=== PATIENT | male | born 1950 | race Caucasian/White ===

== ENCOUNTER 2016-07-06 16:45 | Emergency (ER) | payer OTHER ==
[~2016-07-06] VITALS: Ht 167.6 cm; Wt 85.0 kg
[2016-07-06 16:47] VITALS: BP 144/77; PULSE 74; RESP 24; O2SAT 89
--- NOTE | 2016-07-06 17:56 | PD ---
HPI Chief Complaint: Respiratory Symptoms Time Seen by Provider: 17:51 Travel History International Travel<30 days: No Contact w/Intl Traveler<30days: No Traveled to known affect area: No History of Present Illness HPI 65-year-old male presents to the emergency department for evaluation of coughing , shortness breath, wheezing. He states that he has been having coughing, especially in the morning, for approximately one week. He states that today, he woke up and was coughing so hard that it made him short of breath. Patient reports one episode of chest pain earlier that resolved with drinking water. He denies any chest pain at this time. He states it was midsternal and he thinks it was due to not eating. He states that as soon as he drank water, the pain went away. The patient has been a 1 pack per day smoker for approximately 20 years. He denies any history of asthma, COPD, pneumonia. He states he believes his coughing is from "the pollen". The patient denies any edema. He has no chronic medical problems and takes no prescribed medications. The patient denies any recent surgery or travel. He states that EMS had given him a nebulizer treatment earlier today which did help his symptoms. Patient denies any abdominal pain. No nausea, vomiting, diarrhea. He denies any fevers. [facility] Social History Alcohol Use: No Tobacco Use: Yes Substance Use: Yes (marijuana) Allergies-Medications (Allergen,Severity, Reaction): Coded Allergies: No Known Allergies (Unverified , 07/06/16) Review of Systems Except as stated in HPI: all other systems reviewed are Neg Physical Exam Narrative GENERAL: Well-nourished, well-developed male patient, ambulatory. Afebrile. Oxygen saturation is 95% on room air upon my exam. SKIN: Focused skin assessment warm/dry. HEAD: Normocephalic. Atraumatic. EYES: No scleral icterus. No injection or drainage. NECK: Supple, trachea midline. No JVD or lymphadenopathy. CARDIOVASCULAR: Regular rate and rhythm without murmurs, gallops, or rubs. RESPIRATORY: Breath sounds equal bilaterally. No accessory muscle use. Lungs sounds with expiratory wheezes noted throughout. Patient is talking in full sentences. No respiratory distress. GASTROINTESTINAL: Abdomen soft, non-tender, nondistended. MUSCULOSKELETAL: No cyanosis, or edema. BACK: Nontender without obvious deformity. No CVA tenderness. Data Data Last Documented VS Vital Signs Date Time Temp Pulse Resp B/P Pulse Ox O2 Delivery O2 Flow Rate FiO2 07/06/16 18:47 97.8 07/06/16 18:30 96 Nasal Cannula 2 07/06/16 18:30 79 20 07/06/16 18:30 143/76 Orders Complete Blood Count With Diff (07/06/16 17:49) Basic Metabolic Panel (Bmp) (07/06/16 17:49) B-Type Natriuretic Peptide (07/06/16 17:49) Magnesium (Mg) (07/06/16 17:49) Ckmb (Isoenzyme) Profile (07/06/16 17:49) Troponin I (07/06/16 17:49) Iv Access Insert/Monitor (07/06/16 17:49) Electrocardiogram (07/06/16 17:49) Ecg Monitoring (07/06/16 17:49) Oximetry (07/06/16 17:49) Oxygen Administration (07/06/16 17:49) Chest, Single Ap (07/06/16 17:49) Sodium Chloride 0.9% Flush (Ns Flush) (07/06/16 18:00) Methylprednisolone So Succ Inj (Solumedr (07/06/16 18:00) Albuterol-Ipratropium Neb (Duoneb Neb) (07/06/16 18:00) CKMB (07/06/16 18:46) CKMB% (07/06/16 18:46) Labs Laboratory Tests Test 07/06/16 18:46 White Blood Count 9.6 TH/MM3 Red Blood Count 5.13 MIL/MM3 Hemoglobin 16.0 GM/DL Hematocrit 48.1 % Mean Corpuscular Volume 93.8 FL Mean Corpuscular Hemoglobin 31.3 PG Mean Corpuscular Hemoglobin 33.4 % Concent Red Cell Distribution Width 13.7 % Platelet Count 219 TH/MM3 Mean Platelet Volume 8.2 FL Neutrophils (%) (Auto) 48.3 % Lymphocytes (%) (Auto) 37.9 % Monocytes (%) (Auto) 8.3 % Eosinophils (%) (Auto) 4.8 % Basophils (%) (Auto) 0.7 % Neutrophils # (Auto) 4.6 TH/MM3 Lymphocytes # (Auto) 3.7 TH/MM3 Monocytes # (Auto) 0.8 TH/MM3 Eosinophils # (Auto) 0.5 TH/MM3 Basophils # (Auto) 0.1 TH/MM3 CBC Comment DIFF FINAL Differential Comment Sodium Level 137 MEQ/L Potassium Level 3.5 MEQ/L Chloride Level 103 MEQ/L Carbon Dioxide Level 25.5 MEQ/L Anion Gap 9 MEQ/L Blood Urea Nitrogen 12 MG/DL Creatinine 1.24 MG/DL Estimat Glomerular Filtration 59 ML/MIN Rate Random Glucose 107 MG/DL Calcium Level 8.8 MG/DL Magnesium Level 2.2 MG/DL Total Creatine Kinase 141 U/L Creatine Kinase MB 1.4 NG/ML Troponin I LESS THAN 0.02 NG/ML B-Type Natriuretic Peptide 2 PG/ML MDM Medical Decision Making Medical Screen Exam Complete: Yes Emergency Medical Condition: Yes Medical Record Reviewed: Yes Interpretation(s) Last Impressions Chest X-Ray 07/06/16 1749 Signed Impressions: Service Date/Time: Wednesday, July 06, 2016 18:11 - CONCLUSION: No acute disease. Pepito Landis MD Differential Diagnosis viral URI versus pneumonia versus COPD versus unlikely ACS Narrative Course 65-year-old male presents to the emergency department for evaluation of cold symptoms for one week with intermittent shortness of breath, wheezing, coughing. No fevers. No other symptoms. Physical exam reveals wheezing noted throughout. Patient is a 1 pack smoker for 20 years, although he does deny being diagnosed with COPD. EKG, CBC, BMP, magnesium, CK, troponin, BNP are ordered and pending. Patient is given DuoNeb 3 and Solu-Medrol 125 mg IV. Chest x-ray is ordered and pending. EKG shows SR, HR 64, no acute ST changes. CBC shows normal WBC of 9.6, monocytes 8.3. BMP shows no acute abnormality. BNP is 2. Magnesium is 2.2. CK is 141. Troponin is less than 0.02. Chest x-ray shows no acute disease. Patient verbalizes that he would like to be discharged home. Upon reexamination , lungs sounds are not clear to auscultation. The patient states he feels better. I discussed the case and findings with my attending physician, Dr. Burris, who agrees with plan and and disposition. The patient will be discharged with a prescription for albuterol inhaler, prednisone, azithromycin. He is encouraged to follow-up with his primary care physician on Saturday. He is instructed to return immediately for any acute worsening of symptoms. Patient verbalizes agreement and understanding. The patient was discharged in stable condition with instructions, including return instructions and follow up instructions. Diagnosis Primary Impression: Upper respiratory infection Qualified Code: J06.9 - Upper respiratory tract infection, unspecified type Referrals: Primary Care Physician 3 days Patient Instructions: General Instructions, Upper Respiratory Infection (ED) Additional Instructions: Use albuterol inhaler as directed as needed for shortness of breath/wheezing. Take azithromycin as directed until gone. Take prednisone as directed. Start this tomorrow. Follow-up with your primary care physician. Return to the emergency department for any acute worsening of symptoms. Med/Other Pt SpecificInfo: Prescription(s) given Scripts Azithromycin (Zithromax Z-Leo)250 Mg [id number] Mg PO DIRECTED #1 DSPK Ref 0 500 MG (2 tabs) day 1, then 1 tab days 2-5. Prov:Jenny Brandt 07/06/16 Prednisone 20 Mg Tab40 Mg PO DAILY 4 Days Ref 0 Prov:Jenny Brandt 07/06/16 Albuterol 18 GM Inh (Ventolin Hfa 18 GM Inh)90 Mcg/Act Aer1 Puff INH Q4H PRN ( SHORTNESS OF BREATH) #1 INHALER Ref 0 Prov:Jenny Brandt 07/06/16 Disposition: 01 DISCHARGE HOME Condition: Stable Jenny Brandt Jul 06, 2016 17:56
[2016-07-06] MEDS ORDERED: methylPREDNISolone SOD SUCC 125 MG/2 ML VIAL IVP ONE (18:00)
[2016-07-06] MEDS ORDERED: SODIUM CHLORIDE 0.9% FLUSH 10 ML FLUSH IVF PRN (18:00)
[2016-07-06] MEDS: RESP: ALBUTEROL 2.5 MG/IPRATROPIUM 0.5 MG NEB (SCH) INH (18:04)
[2016-07-06 18:30] VITALS: BP 143/76; PULSE 67; RESP 18; O2SAT 96
--- NOTE | 2016-07-06 18:41 | RADRPT ---
EXAM DATE/TIME: 07/06/2016 18:11 [facility] COMPARISON: No previous studies available for comparison. INDICATIONS : Shortness of breath starting today MEDICAL HISTORY : None. SURGICAL HISTORY : None. ENCOUNTER: Initial ACUITY: 1 day PAIN SCORE: 0/10 LOCATION: Bilateral chest FINDINGS: A single view of the chest demonstrates the lungs to be symmetrically aerated without evidence of mas s, infiltrate or effusion. The cardiomediastinal contours are unremarkable. Osseous structures are intact. CONCLUSION: No acute disease. Pepito Landis MD on July 06, 2016 at 18:40 Board Certified Radiologist. This report was verified electronically.
[2016-07-06 18:47] VITALS: TEMP 97.8
[2016-07-06 19:06] LABS: AUTOMATED NEUTROPHIL # 4.6 TH/MM3 (1.8-7.7); BASOPHIL # 0.1 TH/MM3 (0-0.2); BASOPHIL % 0.7 % (0.0-2.0); EOSINOPHIL # 0.5 TH/MM3 (0-0.4); EOSINOPHIL % 4.8 % (0.0-4.0); HEMATOCRIT 48.1 % (39.0-51.0); HEMO FLAGS DIFF FINAL; LYMPH % 37.9 % (9.0-44.0); LYMPHOCYTE # 3.7 TH/MM3 (1.0-4.8); MEAN CELL VOLUME 93.8 FL (80.0-100.0); MEAN CORPUSCULAR HEMOGLOBIN 31.3 PG (27.0-34.0); MEAN CORPUSCULAR HGB CONC 33.4 % (32.0-36.0); MONO % 8.3 % (0.0-8.0); NEUT % 48.3 % (16.0-70.0); PLATELET COUNT 219 TH/MM3 (150-450); RED BLOOD COUNT 5.13 MIL/MM3 (4.50-5.90); RED CELL DISTRIBUTION WIDTH 13.7 % (11.6-17.2); WHITE BLOOD COUNT 9.6 TH/MM3 (4.0-11.0)
[2016-07-06 19:38] LABS: ANION GAP 9 MEQ/L (5-15); BICARBONATE 25.5 MEQ/L (21.0-32.0); BLOOD UREA NITROGEN 12 MG/DL (7-18); CHLORIDE 103 MEQ/L (98-107); CREATINE KINASE 141 U/L (39-308); GLOMERULAR FILTRATION RATE 59 ML/MIN (>89); MAGNESIUM 2.2 MG/DL (1.5-2.5); POTASSIUM 3.5 MEQ/L (3.5-5.1); SODIUM (NA) 137 MEQ/L (136-145)
[2016-07-06 19:51] LABS: CKMB 1.4 NG/ML (0.5-3.6)
[2016-07-06] MEDS ORDERED: PRED20 PO (20:19)
[2016-07-06] MEDS ORDERED: VENTAER INH (20:19)
[2016-07-06] MEDS ORDERED: ZITHTAB PO (20:19)
--- NOTE | 2016-07-08 21:27 | EKG ---
Date Performed: 07/06/2016 Time Performed: 18:47:07 PTAGE: 65 years EKG: Sinus rhythm WITH SINUS ARRHYTHMIA INFERIOR MYOCARDIAL INFARCTION ABNORMAL ECG NO PREVIOUS TRACING DOCTOR: Anshu Kathleen Interpretating Date/Time 07/08/2016 21:23:10
== END 2016-07-06 20:37 | disposition home or self-care (01) ==
LOC: NEPC 16:45
DX: J06.9 Acute upper respiratory infection, unspecified (principal); F17.210 Nicotine dependence, cigarettes, uncomplicated; R94.31 Abnormal electrocardiogram [ECG] [EKG]
CPT/HCPCS: 71010; 80048; 82550; 82552; 83735; 83880; 84484; 85025; 93005; 94640; 94664; 96374; 99284; J2930

== ENCOUNTER 2016-09-03 20:35 | Emergency (ER) | payer OTHER ==
[~2016-09-03] VITALS: Ht 167.6 cm; Wt 85.0 kg
[~2016-09-03 20:35] MED LIST: PRED20 PO; VENTAER INH; ZITHTAB PO
[2016-09-03 20:36] VITALS: BP 126/90; PULSE 88; RESP 18; TEMP 97.7; O2SAT 91
--- NOTE | 2016-09-03 20:41 | PD ---
HPI Chief Complaint: Respiratory Symptoms Time Seen by Provider: 20:41 Travel History International Travel<30 days: No Contact w/Intl Traveler<30days: No Traveled to known affect area: No History of Present Illness HPI 66-year-old male presents the emergency department with acute respiratory distress and shortness of breath with hypoxemia triage. 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 Patient denies fever, chills, or chest pain. Patient states he's had increased productive cough with clear sputum over the past week. Patient was recently seen by primary care physician and started on A VENTOLIN INHALER 6 WEEKS AGO. He was also started on a once a day inhaler for COPD 6 days ago, which was a sample from his doctor. He states this morning he felt his normal self. Patient does still smoke a few cigarettes every day which is considerably better according to him than 2 months ago. He has no reviews cardiac history. He currently is feeling better on 2 L O2 via nasal cannula with O2 sat of 94% at rest currently. He has no known drug allergies. [facility] Social History Alcohol Use: No Tobacco Use: Yes Substance Use: Yes (marijuana) Allergies-Medications (Allergen,Severity, Reaction): Coded Allergies: No Known Allergies (Unverified , 09/03/16) Reported Meds & Prescriptions Reported Meds & Active Scripts Active Nebulizer 1 Mis Mis 1 Ea .ROUTE DIRECTED Prednisone 20 Mg Tab 20 Mg PO BID Albuterol Neb (Albuterol Sulfate) 2.5 Mg/3 Ml Neb 2.5 Mg NEB Q4HR NEB While awake Azithromycin 500 Mg Tab 500 Mg PO DAILY Ventolin Hfa 18 GM Inh (Albuterol Sulfate) 90 Mcg/Act Aer 1 Puff INH Q4H PRN Reported Anoro Ellipta Inh (Umeclidinium/Vilanterol) 62.5-25 Mcg/Act Aero 1 Puff INH DAILY Review of Systems Except as stated in HPI: all other systems reviewed are Neg General / Constitutional: No: Fever, Chills Eyes: No: Visual changes HENT: No: Headaches Cardiovascular: No: Chest Pain or Discomfort, Palpitations, Irregular Rhythm, Tachycardia, Diaphoresis Respiratory: Positive: Cough, Shortness of Breath, Wheezing, Orthopnea, No: Sneezing, Hemoptysis, Stridor, Night Sweats, Pleuritic Pain Gastrointestinal: No: Nausea, Vomiting, Diarrhea, Abdominal Pain Genitourinary: No: Dysuria Musculoskeletal: No: Pain Skin: No Rash Neurologic: No: Weakness Psychiatric: No: Anxiety, Depression, Suicidal Ideations, Homicidal Ideation Endocrine: No: Polydipsia Hematologic/Lymphatic: No: Easy Bruising Physical Exam Narrative GENERAL: Patient appears in mild distress, but able to speak in short sentences. SKIN: Warm and dry. Normal color. Normal turgor. No diaphoresis. HEAD: Atraumatic. Normocephalic. EYES: Pupils equal and round. No scleral icterus. No injection or drainage. ENT: No nasal bleeding or discharge. Mucous membranes pink and moist. NECK: Trachea midline. Supple and nontender. CARDIOVASCULAR: Regular rate and rhythm. RESPIRATORY: No accessory muscle use. Moderate diffuse wheezes to auscultation. Decreased Breath sounds bilaterally. GASTROINTESTINAL: Abdomen soft, non-tender, nondistended. Hepatic and splenic margins not palpable. MUSCULOSKELETAL: Extremities without clubbing, cyanosis, or edema. No obvious deformities. NEUROLOGICAL: Awake and alert. No obvious cranial nerve deficits. Motor grossly within normal limits. Five out of 5 muscle strength in the arms and legs. Normal speech. PSYCHIATRIC: Appropriate mood and affect; insight and judgment normal. Data Data Last Documented VS Vital Signs Date Time Temp Pulse Resp B/P Pulse Ox O2 Delivery O2 Flow Rate FiO2 09/03/16 22:04 94 Room Air 09/03/16 20:58 2 09/03/16 20:36 97.7 88 18 126/90 Orders Complete Blood Count With Diff (09/03/16 20:52) Comprehensive Metabolic Panel (09/03/16 20:52) Ckmb (Isoenzyme) Profile (09/03/16 20:52) Troponin I (09/03/16 20:52) Iv Access Insert/Monitor (09/03/16 20:52) Electrocardiogram (09/03/16 20:52) Ecg Monitoring (09/03/16 20:52) Oximetry (09/03/16 20:52) Oxygen Administration (09/03/16 20:52) Chest, Single Ap (09/03/16 20:52) Sodium Chloride 0.9% Flush (Ns Flush) (09/03/16 21:00) Methylprednisolone So Succ Inj (Solumedr (09/03/16 21:00) Albuterol-Ipratropium Neb (Duoneb Neb) (09/03/16 21:00) Azithromycin Inj (Zithromax Inj) (09/03/16 21:00) CKMB (09/03/16 20:06) CKMB% (09/03/16 20:06) Labs Laboratory Tests Test 09/03/16 20:06 White Blood Count 10.2 TH/MM3 Red Blood Count 5.33 MIL/MM3 Hemoglobin 16.8 GM/DL Hematocrit 50.3 % Mean Corpuscular Volume 94.4 FL Mean Corpuscular Hemoglobin 31.6 PG Mean Corpuscular Hemoglobin 33.4 % Concent Red Cell Distribution Width 14.3 % Platelet Count 238 TH/MM3 Mean Platelet Volume 8.2 FL Neutrophils (%) (Auto) 56.0 % Lymphocytes (%) (Auto) 36.2 % Monocytes (%) (Auto) 3.7 % Eosinophils (%) (Auto) 3.6 % Basophils (%) (Auto) 0.5 % Neutrophils # (Auto) 5.7 TH/MM3 Lymphocytes # (Auto) 3.7 TH/MM3 Monocytes # (Auto) 0.4 TH/MM3 Eosinophils # (Auto) 0.4 TH/MM3 Basophils # (Auto) 0.1 TH/MM3 CBC Comment DIFF FINAL Differential Comment Sodium Level 138 MEQ/L Potassium Level 3.7 MEQ/L Chloride Level 104 MEQ/L Carbon Dioxide Level 24.5 MEQ/L Anion Gap 10 MEQ/L Blood Urea Nitrogen 14 MG/DL Creatinine 1.55 MG/DL Estimat Glomerular Filtration 45 ML/MIN Rate Random Glucose 98 MG/DL Calcium Level 9.0 MG/DL Total Bilirubin 0.5 MG/DL Aspartate Amino Transf 19 U/L (AST/SGOT) Alanine Aminotransferase 23 U/L (ALT/SGPT) Alkaline Phosphatase 153 U/L Total Creatine Kinase 204 U/L Creatine Kinase MB 3.1 NG/ML Troponin I LESS THAN 0.02 NG/ML Total Protein 7.3 GM/DL Albumin 3.9 GM/DL [facility] Medical Decision Making Medical Screen Exam Complete: Yes Emergency Medical Condition: Yes Differential Diagnosis Acute bronchitis. COPD with acute exacerbation. Pneumonia. Lung cancer. Cardiac syndrome. Narrative Course Patient is medically stable at time of exam. Patient is continued on 2 L O2 via nasal cannula. Labs ordered including CBC, CMP, and cardiac panel. Chest x-ray is ordered as well as EKG. IV access is obtained and the patient is given 125 mg Solu-Medrol IV as well as a DuoNeb every 5 minutes 3. Patient is given 500 mg of azithromycin IV. CBC is unremarkable. CMP shows slightly elevated creatinine at 1.55. Troponin is negative at less than 0.02. Patient is reassessed at 2200 hrs. and is noted to have improved aeration. Patient has a trial of ambulation to determine his O2 sats with exertion. Patient was able to ambulate with O2 sats only dipping to 94 on room air. Patient is discussed with Dr. Anaya and felt to be stable to be discharged. Patient is continued on prednisone 20 mg twice a day #14. Patient is given a prescription for nebulizer with equipment. Patient is continued on azithromycin 500 mg daily 5. Patient is given albuterol dose vials one every 4-6 hours when necessary #60 with 2 refills. Note for work for tomorrow given. Patient is encouraged to quit smoking immediately. Patient is to follow-up also with Dr. Dean next several days to ensure improvement. Patient can return to the emergency department worsening symptoms as necessary. Diagnosis Primary Impression: COPD with acute exacerbation Additional Impression: Hypoxia Referrals: Primary Care Physician Patient Instructions: COPD (Chronic Obstructive Pulmonary Disease) (ED), General Instructions, How to Use a Nebulizer (ED), Nutrition Guidelines for People with COPD (ED), Prednisone (By mouth) Departure Forms: Work Release Enter return to work date: September 05, 2016 Additional Instructions: Patient is continued on prednisone 20 mg twice a day #14. Patient is given a prescription for nebulizer with equipment. Patient is continued on azithromycin 500 mg daily 5. Patient is given albuterol dose vials one every 4-6 hours when necessary #60 with 2 refills. Note for work for tomorrow given. Patient is encouraged to quit smoking immediately. Patient is to follow-up also with Dr. Dean next several days to ensure improvement. Patient can return to the emergency department worsening symptoms as necessary. Scripts Nebulizer 1 Mis Mis #1 EA .ROUTE DIRECTED Ref 0 Prov:Karina Anaya MD 09/03/16 Prednisone 20 Mg Tab20 Mg PO BID #14 TAB Prov:Karina Anaya MD 09/03/16 Albuterol Neb 2.5 Mg/3 Ml Neb2.5 Mg NEB Q4HR NEB #60 NEBULE Ref 2 While awake Prov:Karina Anaya MD 09/03/16 Azithromycin 500 Mg Did789 Mg PO DAILY #5 TAB Prov:Karina Anaya MD 09/03/16 Disposition: 01 DISCHARGE HOME Condition: Stable Parminder Mason September 03, 2016 20:41
[2016-09-03 20:58] VITALS: O2SAT 94
[2016-09-03] MEDS ORDERED: UMEC1AER INH (20:58)
[2016-09-03] MEDS ORDERED: RESP: ALBUTEROL 2.5 MG/IPRATROPIUM 0.5 MG NEB (SCH) INH ONE (21:00)
[2016-09-03] MEDS ORDERED: AZITHROMYCIN INJ 500 MG in SODIUM CHLOR 0.9% 250 ML INJ 250 ML IV ONE (21:00)
[2016-09-03] MEDS ORDERED: methylPREDNISolone SOD SUCC 125 MG/2 ML VIAL IVP ONE (21:00)
[2016-09-03] MEDS ORDERED: SODIUM CHLORIDE 0.9% FLUSH 10 ML FLUSH IVF PRN (21:00)
[2016-09-03 21:28] LABS: AUTOMATED NEUTROPHIL # 5.7 TH/MM3 (1.8-7.7); BASOPHIL # 0.1 TH/MM3 (0-0.2); BASOPHIL % 0.5 % (0.0-2.0); EOSINOPHIL # 0.4 TH/MM3 (0-0.4); EOSINOPHIL % 3.6 % (0.0-4.0); HEMATOCRIT 50.3 % (39.0-51.0); HEMO FLAGS DIFF FINAL; LYMPH % 36.2 % (9.0-44.0); LYMPHOCYTE # 3.7 TH/MM3 (1.0-4.8); MEAN CELL VOLUME 94.4 FL (80.0-100.0); MEAN CORPUSCULAR HEMOGLOBIN 31.6 PG (27.0-34.0); MEAN CORPUSCULAR HGB CONC 33.4 % (32.0-36.0); MONO % 3.7 % (0.0-8.0); PLATELET COUNT 238 TH/MM3 (150-450); RED BLOOD COUNT 5.33 MIL/MM3 (4.50-5.90); RED CELL DISTRIBUTION WIDTH 14.3 % (11.6-17.2); WHITE BLOOD COUNT 10.2 TH/MM3 (4.0-11.0)
--- NOTE | 2016-09-03 21:39 | RADRPT ---
EXAM DATE/TIME: 09/03/2016 21:06 [facility] COMPARISON: CHEST SINGLE AP, July 06, 2016, 18:11. INDICATIONS : Shortness of breath. MEDICAL HISTORY : Chronic obstructive pulmonary disease. SURGICAL HISTORY : None. ENCOUNTER: Initial ACUITY: 1 day PAIN SCORE: 6/10 LOCATION: Bilateral chest FINDINGS: A single view of the chest demonstrates the lungs to be symmetrically aerated without evidence of mas s, infiltrate or effusion. The cardiomediastinal contours are unremarkable. Osseous structures are intact. CONCLUSION: No acute disease. Pepito Landis MD on September 03, 2016 at 21:37 Board Certified Radiologist. This report was verified electronically.
[2016-09-03 21:52] LABS: ANION GAP 10 MEQ/L (5-15); AST (GOT) 19 U/L (15-37); BICARBONATE 24.5 MEQ/L (21.0-32.0); BLOOD UREA NITROGEN 14 MG/DL (7-18); CHLORIDE 104 MEQ/L (98-107); GLOMERULAR FILTRATION RATE 45 ML/MIN (>89); POTASSIUM 3.7 MEQ/L (3.5-5.1); SODIUM (NA) 138 MEQ/L (136-145)
[2016-09-03 21:57] LABS: ALKALINE PHOSPHATASE 153 U/L (45-117); ALT (GPT) 23 U/L (12-78); CREATINE KINASE 204 U/L (39-308); TOTAL BILIRUBIN ADULT 0.5 MG/DL (0.2-1.0)
[2016-09-03 22:04] VITALS: O2SAT 94; O2SAT 96
[2016-09-03 22:10] LABS: CKMB 3.1 NG/ML (0.5-3.6)
[2016-09-03] MEDS ORDERED: PRED20 PO (22:17)
[2016-09-03] MEDS ORDERED: AZIT500T2 PO (22:17)
[2016-09-03] MEDS ORDERED: NEBULIZER1 MI1 (22:17)
[2016-09-03] MEDS ORDERED: ALBU0.08 NEB (22:17)
[2016-09-03 22:50] VITALS: BP 140/68; PULSE 78; RESP 18; O2SAT 95
--- NOTE | 2016-09-04 08:14 | EKG ---
Date Performed: 09/03/2016 Time Performed: 21:08:01 PTAGE: 66 years EKG: Sinus rhythm NORMAL ECG PREVIOUS TRACING : 07/06/2016 18.47 No significant change from previous tracing noted. DOCTOR: Richard Nunez Interpretating Date/Time 09/04/2016 08:13:28
== END 2016-09-03 22:58 | disposition home or self-care (01) ==
LOC: NEPC 20:35
DX: J44.1 Chronic obstructive pulmonary disease with (acute) exacerbation (principal); R09.02 Hypoxemia; Z72.0 Tobacco use
CPT/HCPCS: 71010; 80053; 82550; 82552; 84484; 85025; 93005; 94664; 96374; 96375; 99285; J0456; J2930; J7050